=== PATIENT | male | born 1995 | race Caucasian/White ===

== ENCOUNTER 2016-07-06 18:05 | Emergency (ER) | payer SELFPAY ==
[~2016-07-06] VITALS: Ht 185.4 cm; Wt 62.7 kg
[2016-07-06 18:18] VITALS: BP 142/69; PULSE 76; RESP 16; TEMP 98.1; O2SAT 100
[2016-07-06] MEDS ORDERED: MULT1TAB84 PO (18:24)
[2016-07-06 18:30] VITALS: BP 114/55; PULSE 71; RESP 18; O2SAT 100
[2016-07-06] MEDS ORDERED: IBUP-232 PO (19:57)
--- NOTE | 2016-07-06 19:58 | PD ---
HPI Chief Complaint: Cardiac Complaint Time Seen by Provider: 19:52 Travel History International Travel<30 days: No Contact w/Intl Traveler<30days: No Traveled to known affect area: No History of Present Illness HPI The patient is a 21-year-old male that complained of a heart pounding feeling in sharp pain on the left costochondral junctions today. He apparently got panicky and thought it might be a heart attack. He has no history of heart disease. Yesterday he was playing football and got hit in the left lateral chest and this forced was possibly transmitted to the costochondral junctions on the left. He does smoke. Denies any history of hypertension, elevated cholesterol, diabetes or other major medical problems. His pain has resolved now. PFSH Past Medical History Medical History: Denies Significant Hx Diminished Hearing: No Immunizations Current: Yes Tetanus Vaccination: > 5 Years Influenza Vaccination: No Past Surgical History Surgical History: No Previous Surgery Social History Alcohol Use: Yes (SOCIAL) Tobacco Use: Yes (1 PK) Substance Use: Yes (OCC POT) Allergies-Medications (Allergen,Severity, Reaction): Coded Allergies: No Known Allergies (Unverified , 07/06/16) Reported Meds & Prescriptions Reported Meds & Active Scripts Active Reported Multivitamin Adults (Multiple Vitamins W/ Minerals) 1 Tab 1 Tab PO DAILY Review of Systems Except as stated in HPI: all other systems reviewed are Neg Physical Exam Narrative GENERAL: The patient is alert, slightly anxious, oriented 3 in no apparent distress. The vital signs are normal. SKIN: Focused skin assessment warm/dry. HEAD: Atraumatic. Normocephalic. EYES: Pupils equal and round. No scleral icterus. No injection or drainage. ENT: No nasal bleeding or discharge. Mucous membranes pink and moist. NECK: Trachea midline. No JVD. CARDIOVASCULAR: Regular rate and rhythm. No murmur appreciated. I can completely reproduce the patient's pain by pressing on the costochondral junctions on the left where he perceives the pain. RESPIRATORY: No accessory muscle use. Clear to auscultation. Breath sounds equal bilaterally. GASTROINTESTINAL: Abdomen soft, non-tender, nondistended. Hepatic and splenic margins not palpable. MUSCULOSKELETAL: No obvious deformities. No clubbing. No cyanosis. No edema. NEUROLOGICAL: Awake and alert. No obvious cranial nerve deficits. Motor grossly within normal limits. Normal speech. PSYCHIATRIC: The patient is slightly anxious; insight and judgment normal. Data Data Last Documented VS Vital Signs Date Time Temp Pulse Resp B/P Pulse Ox O2 Delivery O2 Flow Rate FiO2 07/06/16 18:30 71 18 114/55 100 Room Air 07/06/16 18:18 98.1 Orders Electrocardiogram (07/06/16 18:40) MDM Medical Decision Making Medical Screen Exam Complete: Yes Emergency Medical Condition: Yes Interpretation(s) EKG is normal with a normal sinus rhythm rate of 69. Differential Diagnosis Pericarditis, pneumothorax, costochondritis, anxiety, panic attack Narrative Course The patient appears to have costochondritis. He likely also had a panic attack. Plan: The patient will be given Motrin, 600 mg 3 times daily and follow-up with his primary care physician within a week. Diagnosis Primary Impression: Costochondritis, acute Additional Impression: Panic attack Additional Instructions: Take the Motrin, 1 tablet 3 times daily and, after a few days, the pain usually will resolve. Follow-up with your primary care physician, hopefully within a week. Med/Other Pt SpecificInfo: Prescription(s) given Scripts Ibuprofen 600 Mg Llt620 Mg PO TID #44 TAB Ref 0 Prov:Guido Malcolm MD 07/06/16 Disposition: 01 DISCHARGE HOME Condition: Stable Guido Malcolm MD Jul 06, 2016 19:58
[2016-07-06 20:08] VITALS: BP 119/53
--- NOTE | 2016-07-07 10:42 | EKG ---
Date Performed: 07/06/2016 Time Performed: 18:40:58 PTAGE: 21 years EKG: Sinus rhythm rSr'(V1) - probable normal variant Normal ECG NO PREVIOUS TRACING DOCTOR: Jett Carlson Interpretating Date/Time 07/07/2016 10:41:43
== END 2016-07-06 20:11 | disposition home or self-care (01) ==
LOC: PHED 18:05
DX: M94.0 Chondrocostal junction syndrome [Tietze] (principal); F41.0 Panic disorder [episodic paroxysmal anxiety]; F17.200 Nicotine dependence, unspecified, uncomplicated
CPT/HCPCS: 93005

== ENCOUNTER 2017-04-25 16:54 | Emergency (ER) | payer OTHER ==
[~2017-04-25] VITALS: Ht 167.6 cm; Wt 63.0 kg
[~2017-04-25 16:54] MED LIST: IBUP-232 PO; MULT1TAB84 PO
[2017-04-25 17:03] VITALS: BP 123/57; PULSE 63; RESP 16; TEMP 98.3; O2SAT 99
--- NOTE | 2017-04-25 18:23 | PD ---
HPI Chief Complaint: Injury Time Seen by Provider: 18:10 Travel History International Travel<30 days: No Contact w/Intl Traveler<30days: No Traveled to known affect area: No History of Present Illness HPI 22-year-old male presents for evaluation of right knee pain. Pressure over the patient reports that he was carrying a stack washer dryer unit downstairs when he fell and the washer dryer unit hit his right knee and pinned it against a door. He now has a throbbing pain to the right knee which is constant and worse with movement. He denies any other injuries and he has no other complaints at this time. ON LICENSE OF [facility] Past Medical History Medical History: Denies Significant Hx Diminished Hearing: No Immunizations Current: Yes Tetanus Vaccination: Unknown Past Surgical History Surgical History: No Previous Surgery Social History Alcohol Use: Yes (SOCIAL) Tobacco Use: Yes (1 PK) Substance Use: Yes (OCC POT) Allergies-Medications (Allergen,Severity, Reaction): Coded Allergies: No Known Allergies (Unverified Adverse Reaction, Unknown, 04/25/17) Reported Meds & Prescriptions Reported Meds & Active Scripts Active No Active Prescriptions or Reported Medications Review of Systems Musculoskeletal: Positive: Pain, No: Limited ROM Skin: Positive Other (denies open wounds) Physical Exam Narrative GENERAL: Well-nourished male in no acute distress SKIN: Warm and dry. HEAD: Atraumatic. Normocephalic. EYES: Pupils equal and round. No scleral icterus. No injection or drainage. ENT: No nasal bleeding or discharge. Mucous membranes pink and moist. NECK: Trachea midline. No JVD. CARDIOVASCULAR: Regular rate and rhythm. No murmur appreciated. RESPIRATORY: No accessory muscle use. Clear to auscultation. Breath sounds equal bilaterally. MUSCULOSKELETAL: No obvious deformities. Generalized tenderness to palpation of the right knee. There is no joint effusion. The patient maintains full range of motion of the lower extremities. There is no obvious laxity on anterior or posterior stress of the right knee. Distal pulses are preserved. NEUROLOGICAL: Awake and alert. No obvious cranial nerve deficits. Motor grossly within normal limits. Normal speech. Data Data Last Documented VS Vital Signs Date Time Temp Pulse Resp B/P (MAP) Pulse Ox O2 Delivery O2 Flow Rate FiO2 04/25/17 18:13 16 99 Room Air 04/25/17 17:03 98.3 63 123/57 (79) Orders Orders Knee, Complete (4vws) (04/25/17 ) Ed Discharge Order (04/25/17 19:37) MDM Medical Decision Making Medical Screen Exam Complete: Yes Emergency Medical Condition: Yes Medical Record Reviewed: Yes Differential Diagnosis Right knee contusion, sprain, ligamentous disruption, meniscal disruption, fracture Narrative Course X-ray imaging reveals no acute abnormalities. The patient is declining crutches. 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 Recommend follow-up with primary care physician next week for medical clearance to return to work. Diagnosis Primary Impression: Right knee sprain Departure Forms: Tests/Procedures, Work Release Enter return to work date: May 02, 2017 Additional Instructions: Ice the affected area several times a day 15 minutes at a time. Avoid strenuous activity, heavy lifting. Take Tylenol or Motrin for pain. Follow up next week with primary care physician. Return for any emergent medical conditions. Med/Other Pt SpecificInfo: No Change to Meds Scripts No Active Prescriptions or Reported Meds Disposition: 01 DISCHARGE HOME Condition: Stable Joey Gardner Apr 25, 2017 18:23
--- NOTE | 2017-04-25 19:13 | RADRPT ---
EXAM DATE/TIME: 04/25/2017 18:31 [facility] COMPARISON: No previous studies available for comparison. INDICATIONS : Right anterior knee pain after getting pinned between a washing machine and a door. MEDICAL HISTORY : None. SURGICAL HISTORY : None. ENCOUNTER: Initial ACUITY: 1 day PAIN SCORE: 7/10 LOCATION: Right knee FINDINGS: Four view examination of the right knee demonstrates no evidence of fracture or dislocation. Bony mi neralization is normal. The articular surfaces are intact. The suprapatellar soft tissues have a no rmal configuration. CONCLUSION: No acute disease. David Davis MD on April 25, 2017 at 19:10 Board Certified Radiologist. This report was verified electronically.
== END 2017-04-25 19:49 | disposition home or self-care (01) ==
LOC: PHED 16:54 → PHEFT 19:49
DX: S83.91XA Sprain of unspecified site of right knee, initial encounter (principal); W10.9XXA Fall (on) (from) unspecified stairs and steps, initial encounter; Y99.0 Civilian activity done for income or pay
CPT/HCPCS: 73564; 99283